=== PATIENT | female | born 1955 | race Caucasian/White ===

== ENCOUNTER → 2018-09-06 | Outpatient (CLI) | payer BC ==
[~2018-09-06] MED LIST: BENADRYL25 MG PO; CARAFATE 11 GM/10 M1 PO; CLARITIN10 MG PO; EXCEDRIN CAPLE1 EACH PO; LISINOPRIL20 MG PO; PRILOSEC 20 MG20 MG PO; XANAX 0.5 MG0.5 MG PO; ZOLOFT25 MG PO
== END ==
LOC: RAD 15:23
DX: Z12.31 Encounter for screening mammogram for malignant neoplasm of breast (principal)

== ENCOUNTER → 2020-07-11 | Outpatient (CLI) | payer BC | LOC: RAD 13:07 | PROVIDERS: ATTEND Family Medicine | DX: Z12.31 Encounter for screening mammogram for malignant neoplasm of breast (principal) ==